=== PATIENT | female | born 1990 | race Caucasian/White ===

== ENCOUNTER 2020-04-07 09:47 | Inpatient (IN) ==
[2020-04-07] MEDS ORDERED: D5LR 1L W PITOCIN 10 UNITS/L 10 UNITS/1,000 ML BAG IV PRN (10:01)
[2020-04-07] MEDS ORDERED: REGLAN INJ 10 MG VIAL IVP PRN ×2 (10:01→19:05)
[2020-04-07] MEDS ORDERED: PITOCIN IVP ONE (10:01)
[2020-04-07] MEDS ORDERED: PHENERGAN INJ 25 MG IM PRN ×3 (10:01→20:45)
[2020-04-07] MEDS ORDERED: STADOL INJ IVP PRN (10:08)
[2020-04-07 10:09] LABS: BILIRUBIN,URINE NEGATIVE (NEGATIVE); BLOOD/HEMOGLOBIN,URINE 2+ (NEGATIVE); GLUCOSE, URINE NEGATIVE (NEGATIVE); KETONES,URINE 1+ (NEGATIVE); LEUKOCYTE ESTERASE ,URINE 1+ (NEGATIVE); NITRITES,URINE NEGATIVE (NEGATIVE); PROTEIN,URINE 1+ (NEGATIVE); UROBILINOGEN,URINE NORMAL (NORMAL)
[2020-04-07 10:21] LABS: AMNISURE ROM TEST THERE IS A RUPTURE (NO RUPTURE)
[2020-04-07] MEDS ORDERED: PITOCIN ONE (10:23)
[2020-04-07] MEDS ORDERED: D5 1/2 NS 1000 ML 1,000 ML IV ONE (10:23)
[2020-04-07] MEDS ORDERED: D5 1/2 NS 1L W PITOCIN 20 UNITS/L 20 UNITS/1,000 ML BAG IV ONE (10:24)
[2020-04-07] MEDS ORDERED: BETADINE SOLN ONE (10:24)
[2020-04-07] MEDS ORDERED: D5LR 1L W PITOCIN 10 UNITS/L 10 UNITS/1,000 ML BAG IV ONE (10:24)
[2020-04-07 10:26] LABS: APPEARANCE,URINE HAZY (CLEAR); BACTERIA,URINE TRACE /HPF (NEGATIVE); COLOR,URINE YELLOW (YELLOW); SQUAMOUS EPITHELIAL CELL,UR MODERATE /HPF (NEGATIVE)
[2020-04-07] MEDS ORDERED: D5 1/2 NS 1000 ML 1,000 ML IV SCH (11:00)
[2020-04-07] MEDS ORDERED: REGLAN INJ 10 MG VIAL ONE ×2 (13:05→18:59)
[2020-04-07] MEDS ORDERED: STADOL INJ ONE (13:05)
[2020-04-07] MEDS ORDERED: ANCEF 1 GRAM IV PREMIX* 2 G/100 ML BAG IV ONE (17:17)
[2020-04-07] MEDS ORDERED: ANCEF 1 GRAM IV PREMIX* 1 G/50 ML BAG IV ONE (17:19)
[2020-04-07] MEDS ORDERED: XYLOCAINE 1 % (PLAIN) ONE (17:20)
[2020-04-07] MEDS ORDERED: MARCAINE SPINAL ONE (17:20)
[2020-04-07] MEDS ORDERED: DILAUDID INJ ONE (17:20)
[2020-04-07] MEDS ORDERED: LR 1000 ML IV 1,000 ML IV ONE ×2 (17:21)
[2020-04-07] MEDS ORDERED: ZOFRAN INJ 4 MG VIAL ONE (18:59)
[2020-04-07] MEDS ORDERED: EPHEDRINE SULFATE INJ ONE (18:59)
[2020-04-07] MEDS ORDERED: ZOFRAN INJ 4 MG VIAL IVP PRN ×3 (19:03→20:43)
[2020-04-07] MEDS ORDERED: BENADRYL INJ 50 MG VIAL IVP PRN (19:05)
[2020-04-07] MEDS ORDERED: ADACEL or BOOSTRIX TDaP VACCINE IM ONE (19:06)
[2020-04-07] MEDS ORDERED: MYLICON TAB 80 MG CHEW PO PRN (19:47)
[2020-04-07] MEDS ORDERED: PERCOCET TAB 5/325 MG PO PRN (19:47)
[2020-04-07] MEDS ORDERED: D5 1/2 NS 1000 ML 1,000 ML with PITOCIN 20 UNITS IV SCH ×2 (19:47)
[2020-04-07] MEDS: TORADOL 30 MG VIAL IVP SCH (20:30)
[2020-04-07] MEDS ORDERED: ZOFRAN INJ 4 MG VIAL IVP ONE (20:43)
[2020-04-08] MEDS: TORADOL 30 MG VIAL IVP SCH ×3 (02:35→14:36)
[2020-04-08 06:40] LABS: HEMATOCRIT 33.2 % (36.0-47.0)
[2020-04-08] MEDS: PRENATAL PLUS PO SCH (08:45)
[2020-04-08] MEDS ORDERED: TORADOL 30 MG VIAL IVP PRN (19:00)
[2020-04-09 08:37] VITALS: BP 117/80
[2020-04-09] MEDS: PRENATAL PLUS PO SCH (08:38)
[2020-04-09] MEDS ORDERED: COLACE CAP 100 MG PO ONE (08:44)
[2020-04-09] MEDS ORDERED: ADACEL or BOOSTRIX TDaP VACCINE IM ONE (10:00)
== END 2020-04-09 10:05 | disposition home or self-care (01) | DRG 787 ==
LOC: LD 09:47 → MED/SURG 19:13
PROVIDERS: ADMIT Obstetrics & Gynecology; ATTEND Obstetrics & Gynecology